=== PATIENT | male | born 1980 | race Caucasian/White ===

== ENCOUNTER 2023-10-14 21:36 | Emergency (ER) | payer OTHER, SELFPAY ==
[2023-10-14 21:55] VITALS: BP 144/74; PULSE 87; O2SAT 99
[2023-10-14 22:29] VITALS: BP 145/94; PULSE 85; RESP 16; TEMP 36.6; O2SAT 95; BMI 38.4
[2023-10-14 23:14] LABS: COVID-19 Test Negative (Negative); IDNOW Serial# 16C4AD1C
[2023-10-14 23:18] LABS: IDNOW Serial# 55D5AD1C; Influenza A Negative (Negative); Influenza B2 Negative (Negative)
--- OUTSIDE RECORDS SUMMARY | 2023-10-15 01:11 | XMS_ITS | Continuity of Care Document ---
Author Name Unknown Organization [facility] Address [address] [place] [address]- Care Team Providers Care Research Soil Scientist Name Role Phone Ijeoma Adams MD Primary Care Physician Encounter [facility] Date(s): 10/27/22 - 11/26/22 [facility] [address] [place] [address]- Allergies, Adverse Reactions, Alerts Substance Reaction Severity Status Strawberries Active Kiwi Active Medications atorvastatin 10 mg oral tablet 0 Refills, Maintenance, 10/12/22 8:04:00 EST, Partial fill upon patient request if the prescriptionis for a schedule II opioid drug. Start Date: 10/12/22 Status: Ordered fluticasone 50 mcg/inh nasal spray 1 sprays, Nares, Both, 2 times a day, # 16 Gm, 3 Refills, Maintenance, 10/13/22 8:54:00 EST, [place],[facility] #[id number], Partial fill upon patient request if the prescription is for a schedule II opioid drug., 1 sprays Nares, Both 2 times a da... Start Date: 10/13/22 Status: Ordered metFORMIN 500 mg oral tablet 1 tablet = 500 mg, By Mouth, 2 times a day, # 180 tablet, 1 Refills, Maintenance, 10/27/22 21:18:00EST, Tablet, [facility]/pharmacy #[id number], Partial fill upon patient request if the prescription is for a schedule II opioid drug., 160, cm, 10/12/22 8:01:00 EST... Start Date: 10/27/22 Status: Ordered metFORMIN 500 mg oral tablet 0 Refills, Maintenance, 10/12/22 8:04:00 EST, Partial fill upon patient request if the prescriptionis for a schedule II opioid drug. Start Date: 10/12/22 Status: Ordered ondansetron 4 mg oral tablet, disintegrating 1 tablet = 4 mg, By Mouth, Every 8 hours, PRN as needed for nausea/vomiting, # 12 tablet, 0 Refills, Maintenance, 03/20/20 15:06:00 EDT, DIS Tablet Start Date: 03/20/20 Stop Date: 03/23/20 Status: Ordered ondansetron 4 mg oral tablet, disintegrating 1 tablet = 4 mg, By Mouth, Every 8 hours, PRN as needed for nausea/vomiting, # 12 tablet, 0 Refills, Maintenance, 03/20/20 15:07:00 EDT, DIS Tablet, [facility] #[id number], 162, cm, 12/11/19 15:15:00 EDT, Height, 95, kg, 12/11/19 15:15:00 EDT, . Start Date: 03/20/20 Stop Date: 03/23/20 Status: Ordered Zofran 4 mg oral tablet 1 tablet = 4 mg, By Mouth, Every 8 hours, PRN Nausea & Vomiting, # 9 tablet, 0 Refills, Maintenance, 03/20/20 15:04:00 EDT, Tablet Start Date: 03/20/20 Stop Date: 03/23/20 Status: Ordered Problem List Condition Confirmation Course Effective Dates Status H ealth Status Informant Type 2 diabetes mellitus with hyperglycemia Confirmed Active Hyperlipidemia Confirmed Active Severe obesity Confirmed Active Social History Social History Type Response Smoking Status Never (less than 100 in lifetime) entered on: 10/12/22 Sex Patient Care team information Care Team Personnel Name: Ijeoma Adams MD Position: [facility] Primary Care Physician Member Role: PCP Address: Address: [address] [place] [address]- Care Team Related Persons Name: JAZ WINN Address: [place] [address]
--- OUTSIDE RECORDS SUMMARY | 2023-10-15 01:11 | XMS_ITS | Continuity of Care Document ---
Author Name Unknown Organization [facility] Address [address] [place] [address]- Care Team Providers Care Corn Miller Name Role Phone Ijeoma Adams MD [id number] 09[facility]12[facility] [address] [place], [place] [address] Attending Physician: Ijeoma Adams MD Allergies, Adverse Reactions, Alerts Substance Reaction Severity Status Strawberries Active Kiwi Active Medications ondansetron 4 mg oral tablet, disintegrating 1 [...] Refills, Maintenance, 03/20/20 15:07:00 EDT, DIS Tablet, [facility] #[id number], 162, cm, 12/11/19 15:15:00 EDT, Height, 95, kg, 12/11/19 15:15:00 EDT, Start Date: 03/20/20 Stop Date: 03/23/20 Status: Ordered Zofran 4 mg oral tablet 1 tablet = 4 mg, By Mouth, Every 8 hours, PRN Nausea & Vomiting, # 9 tablet, 0 Refills, Maintenance, 03/20/20 15:04:00 EDT, Tablet Start Date: 03/20/20 Stop Date: 03/23/20 Status: Ordered Patient Care team information Care Team Personnel Name: Angie ORDAZ, Ijeoma Franklin Position: [facility] Primary Care Physician Member Role: PCP Address: Address: [address] [place] [address] - [place] [address]- Care Team Related Persons Name: MORIAHJAZ PORTILLO Address: [place] [address]
--- OUTSIDE RECORDS SUMMARY | 2023-10-15 01:11 | XMS_ITS | Continuity of Care Document ---
Author Name Unknown Organization [facility] ter Address [address] [place] [address]- Care Team Providers Care Project Analyst Name Role Phone Ijeoma Adams MD Primary Care Physician En[place] [facility] Date(s): 01/02/23 - 01/02/[address] [address]- Discharge Disposition: A-D/C Home Attending Physician: Tootie Ambriz MD Admitting Physician: Tootie Ambriz MD Referring Physician: Not on Staff, Referring MD Allergies, Adverse Reactions, Alerts Substance Reaction [...] Gm, 3 Refills, Maintenance, 10/13/22 8:54:00 EST, [place],[facility] #[id number], Partial fill upon patient request if the prescription is for a schedule II opioid drug., 1 sprays Nares, Both 2 times a da... Start Date: 10/13/22 Status: Ordered metFORMIN 500 mg oral tablet 1 tablet = 500 mg, By Mouth, 2 times a day, # 180 tablet, 1 Refills, Maintenance, 10/27/22 21:18:00EST, Tablet, [facility]/pharmacy #[id number], Partial fill upon patient request if the [...] Refills, Maintenance, 03/20/20 15:07:00 EDT, DIS Tablet, [facility] #[id number], 162, cm, 12/11/19 15:15:00 EDT, Height, 95, [...] Hyperlipidemia Confirmed Active Severe obesity Confirmed Active Vital Signs Most recent to oldest [Reference Range]: 1 2 3 Oxygen Saturation [94-100 %] 98 % (01/02/23 6:21 AM) 98 % (01/02/23 4:12 AM) 98 % (01/02/23 2:07 AM) Pulse Rate [55-90 bpm] 110 bpm *H* (01/02/23 6:21 AM) 111 bpm *H* (01/02/23 4:12 AM) 122 bpm *H* (01/02/23 2:07 AM) Blood Pressure [90-138/55-84 mm Hg] 126/78mm Hg (01/02/23 6:21 AM) 123/76mm Hg (01/02/23 4:12 AM) 127/95mm Hg (01/02/23 2:07 AM) Respiratory Rate [16-30 br/min] 22 br/min (01/02/23 6:21 AM) 24 br/min (01/02/23 4:12 AM) 22 br/min (01/02/23 2:07 AM) Temperature [96.8-100.4 DegF] 99.1 DegF (01/02/23 2:07 AM) 98.7 DegF (01/02/23 12:16 AM) Mode of Delivery (Oxygen) Room air (01/02/23 12:16 AM) Blood pressure sites Arm, right (01/02/23 2:07 AM) Arm, left (01/02/23 12:16 AM) Temperature Route Oral (01/02/23 12:16 AM) Social History Social History Type Response Smoking Status Never (less than 100 in lifetime) entered on: 10/12/22 Sex Note * Alexandria HAMILTON, Miguelito Abdi: PERFORM Event Display: Patient Education Leaflets Authored Date: [id number] Unknown Causes of Abdominal Pain (Adult) ?? [id number] Unknown Causes of Abdominal Pain (Adult) The exact cause of your belly (abdominal) pain is not clear. Your exam and tests don't suggest a dangerous cause at this time. This does not mean that this is something to worry about. Everyone likesto know the exact cause of the problem. But sometimes with belly pain, there is no clear-cut cause,and this could be a good thing. Your symptoms can be treated, and you should feel better.?? Your condition does not seem serious now. But sometimes the signs of a serious problem may take more time to appear. For this reason,??it's important for you to watch for any new symptoms, problems,??or worsening of your condition. Over the next few days, the abdominal pain may come and go. Or it may be constant. Other common symptoms can include nausea and vomiting. Sometimes it can be difficult to tell if you feel nauseous. You may just feel bad and not connect that feeling to nausea. Constipation, diarrhea, and a fever maygo along with the pain. The pain may continue even if treated correctly over the following days. Depending on how things go, sometimes the cause can become clear and you may need more??or different treatment. You may also need other evaluations, medicines, or tests. Home care Your healthcare provider may prescribe medicine for pain, symptoms, or an infection. ??Follow the healthcare provider's instructions for taking these medicines. General care ??? Rest as much as you can until your next exam. No strenuous activities. ??? Try to not do anything that may have caused your symptoms. This might be not taking any medicines unless otherwise directed by your healthcare provider. It might be not eating certain foods or doing certain activities. ??? Find positions that ease discomfort. A small pillow placed on your belly may help relieve pain. ??? Something warm on your belly such as a heating pad may help, but be careful not to burn yourself. Diet ??? Don???t??force yourself to eat, especially if having cramps, vomiting, or diarrhea. ??? Water is important so you don't get dehydrated. Soup may also be good. Sports drinks may also help, especially if they are not too acidic. Don't drink sugary drinks as this can make things worse. Take liquids in small amounts. Don???t??guzzle them. ??? Caffeine sometimes makes the pain and cramping worse. ??? Don???t take??dairy products if you have vomiting or diarrhea. ??? Don't eat large amounts at a time. Eat several small meals during the day instead of 2 or 3 larger meals. Wait a few minutesbetween bites. ??? Eat a diet low in fiber (called a low-residue diet). Foods allowed include refined breads, white rice, fruit and vegetable juices without pulp, tender meats. These foods will pass more easily through the intestine. ??? Don???t have??whole-grain foods, whole fruits and vegetables,meats, seeds and nuts, fried or fatty foods, dairy, alcohol and spicy foods until your symptoms go away. ?? Follow-up care Follow up with your healthcare provider, or as advised, if your pain does not begin to improve in the next 24 hours. ?? Call 911 Call?? 911 if any of these occur: ??? Trouble breathing ??? Confusion ??? Fainting or loss of consciousness ??? Rapid heart rate ??? Seizure ?? When to seek medical advice Call your healthcare provider right away if any of these occur: ??? Pain gets worse or moves to theright lower abdomen ??? New or worsening vomiting or diarrhea ??? Swelling of the abdomen ??? Unable to pass stool for more than??3 days ??? Fever of 100.4??F (38??C) or higher, or as directed by your healthcare provider ??? Blood in vomit or bowel movements (dark red or black color) ??? Yellow color of eyes and skin (jaundice) ??? Weakness, dizziness ??? Chest, arm, back, neck, or jaw pain ??? Can't keep down medicines, liquids, or water because of too much vomiting ??? If you have a vagina: unexpected vaginal bleeding or missed period ?? Last Reviewed Date: 2021 ?? 2451-3044 [employer]. All rights reserved. This information is not intended as a substitute for professional medical care. Always follow your healthcare professional's instructions. ?? Patient Care team information Care Team Personnel Name: Ijeoma Adams MD Position: [facility] Primary Care Physician Member Role: PCP Address: Address: [address] [place] [id number]- Name: Miguelito Mayfield Position: [facility] Associate Professional Member Role: ED Physician Customer Supply Coordinator Address: Address: [address] [place] [address]- Name: Nic Hunter RN Position: [facility] ED RN W/OE and Tasks Member Role: Patient Care Provider Name: Juani Peter Position: [facility] ED TA [facility] Member Role: Patient Care Provider Name: Tootie Ambriz MD Position: [facility] ED Medicine MD Member Role: Admitting Physician Address: Address: [address] [place] [id number] Care Team Related Persons Name: JAZ WINN Address: [place] [address]
--- OUTSIDE RECORDS SUMMARY | 2023-10-15 01:11 | XMS_ITS | Continuity of Care Document ---
Author Name Unknown Organization [facility] ter Address [address] [place] [address]- Care Team Providers Care Paper Rewinder Operator Name Role Phone Ijeoma Adams MD Primary Care Physician Encounter [facility] Date(s): 12/11/19 - 12/11/[address] [address]- [facility] Encounter Diagnosis Gastroenteritis(Final) - 12/11/19 Discharge Disposition: A-D/C Home Attending Physician: Naveen Rowe MD Admitting Physician: Naveen Rowe MD Referring Physician: Not on Staff, Referring MD Allergies, Adverse Reactions, Alerts Substance Reaction Severity Status Strawberries Active Kiwi Active Vital Signs Most recent to oldest [Reference Range]: 1 2 3 Height 162 cm (12/11/19 3:15 PM) 162 cm (12/11/19 1:06 PM) 162 cm (12/11/19 10:18 AM) Weight 95 kg (12/11/19 3:15 PM) 95 kg (12/11/19 1:06 PM) 95 kg (12/11/19 7:39 AM) Oxygen Saturation [94-100 %] 97 % (12/11/19 3:15 PM) 96 % (12/11/19 1:06 PM) 97 % (12/11/19 10:18 AM) Pulse Rate [55-90 bpm] 101 bpm *H* (12/11/19 3:15 PM) 100 bpm *H* (12/11/19 1:06 PM) 84 bpm (12/11/19 10:18 AM) Body Mass Index [18.5-24.99] 36.2 *>HHI* (12/11/19 3:15 PM) 36.2 *>HHI* (12/11/19 1:06 PM) Blood Pressure [90-138/55-84 mm Hg] 118/79mm Hg (12/11/19 3:15 PM) 140/80mm Hg *H* (12/11/19 1:06 PM) 120/77mm Hg (12/11/19 10:18 AM) Respiratory Rate [16-30 br/min] 18 br/min (12/11/19 3:15 PM) 16 br/min (12/11/19 1:06 PM) 17 br/min (12/11/19 10:18 AM) Temperature [96.8-100.4 DegF] 97.9 DegF (12/11/19 3:15 PM) 97.8 DegF (12/11/19 10:18 AM) 98.3 DegF (12/11/19 7:39 AM) Liters per Minute 0 L/min (12/11/19 10:18 AM) Mode of Delivery (Oxygen) Room air (12/11/19 3:15 PM) Room air (12/11/19 1:06 PM) Room air (12/11/19 10:18 AM) Blood pressure sites Arm, right (12/11/19 10:18 AM) Temperature Route Oral (12/11/19 3:15 PM) Oral (12/11/19 10:18 AM) Oral (12/11/19 7:39 AM) Dry Weight 95 kg (12/11/19 3:15 PM) 95 kg (12/11/19 1:06 PM) 95 kg (12/11/19 7:39 AM)
--- OUTSIDE RECORDS SUMMARY | 2023-10-15 01:11 | XMS_ITS | Continuity of Care Document ---
Author Name Unknown Organization [facility] Address [address] [place] [address]- Care Team Providers Care Coloring Room Man Name Role Phone Ijeoma Adams MD Primary Care Physician [place] [facility] Date(s): 10/12/22 - 10/19/22 [facility] [address] [place] [address]- Encounter Diagnosis Right patellofemoral syndrome(Discharge Diagnosis) - 10/13/22 Attending Physician: Ijeoma Adams MD Allergies, Adverse [...] Gm, 3 Refills, Maintenance, 10/13/22 8:54:00 EST, [place],[facility] #[id number], Partial fill upon patient request if the [...] Refills, Maintenance, 03/20/20 15:07:00 EDT, DIS Tablet, [facility] #[id number], 162, cm, 12/11/19 15:15:00 EDT, Height, 95, [...] Hyperlipidemia Confirmed Active Severe obesity Confirmed Active Diagnosis Diagnosis Type Effective Dates Health Status Clinical Service Informant Right patellofemoral syndrome Discharge Diagnosis 10/13/22 Vital Signs Most recent to oldest [Reference Range]: 1 Height 160 cm (10/12/22 8:01 AM) Weight 105.6 kg (10/12/22 8:01 AM) Oxygen Saturation [94-100 %] 98 % (10/12/22 8:01 AM) Pulse Rate [55-90 bpm] 102 bpm *H* (10/12/22 8:01 AM) Body Mass Index [18.5-24.99 kg/m2] 41.25 kg/m2 *>HHI* (10/12/22 8:01 AM) Blood Pressure [90-138/55-84 mm Hg] 95/6 5mm Hg (10/12/22 8:01 AM) Blood pressure sites Arm, left (10/12/22 8:01 AM) Social History Social History Type Response Smoking Status Never (less than 100 in lifetime) entered on: 10/12/22 Sex Note * Danielito Whitehead: PERFORM, SIGN, VERIFY Event Display: Patient Education/Instruction Authored Date: [id number] [facility] *[facility] Clinical Summary Name MIGEL MIRANDA Age 41 Years 1980 PCP Angie ORDAZ, Ijeoma Franklin PCP Visit Date 10/12/2022 07:40:00 Additional Instructions: Scheduled Appointments?? Future Appointments ?No Future Appointments Scheduled Follow-Up Instructions ?? Diagnosis Medications: Please continue your medications until treatment is completed or stopped by your provider. Discuss any questions related to medications with your provider. Medications to Continue with No Changes These medications were not printed or sent to your pharmacy Atorvastatin (atorvastatin 10 mg oral tablet) Next Dose: Metformin (metFORMIN 500 mg oral tablet) Next Dose: Ondansetron (ondansetron 4 mg oral tablet, disintegrating) 1 tab(s) Oral every 8 hours as needed asneeded for nausea/vomiting for 3 Days. Refills: 0. Next Dose: Ondansetron (ondansetron 4 mg oral tablet, disintegrating) 1 tab(s) Oral every 8 hours as needed asneeded for nausea/vomiting for 3 Days. Refills: 0. Next Dose: Ondansetron (Zofran 4 mg oral tablet) 1 tab(s) Oral every 8 hours as needed Nausea & Vomiting for 3 Days. Refills: 0. Next Dose: Allergy Info:?? Kiwi; Strawberries Medications Given This Visit Future Orders ?No future orders Vital Signs Height 160 cm Weight 105.6 kg BMI 41.25 kg/m2 Blood Pressure 95 mm Hg/65 mm Hg Temperature Pulse Rate 102 bpm Respiratory Rate 02 Sat Mode of Delivery 98 %/ You can now view a summary of your hospital visit from the comfort of your home through a free online portal called [employer]. [employer] is a website that allows you to securely view your medical information including discharge summary, medications and follow-up visits. ??You can alsosend a secure electronic message to your doctor???s office to request appointments, renew medications or just ask a question. You can enroll at [email or web address] or register during your next office visit. Disclaimer:?? The information provided is of a general nature and is intended to be used in conjunction with the recommendations and advice of your health care practitioner. ??Every effort has been made to ensure that the information provided is accurate and complete at the time it is provided to you however, as your needs change, or, as new ??information becomes available, different or additional instructions may be required. If you have questions, please consult with your primary care provider or pharmacist, as appropriate. ??This information is not intended to serve as substitution for assessment and evaluation by a qualified health care provider. If you do not have a primary care provider, you may find a [facility] provider by calling [facility] at [phone]. For information about the plan of care including goals and instructions for your diagnosis, please see the patient education orders section of this document. Patient Education Materials?? The content of this educational material or handout may have been modified, supplemented, or adapted from its original content and format to support your individualized medical care. Patient Care team information Care Team Personnel Name: Ijeoma Adams MD Position: [facility] Primary Care Physician Member Role: PCP Address: Address: [address] [facility] [place] [address]- Care Team Related Persons Name: JAZ WINN Address: [place] [address]
--- OUTSIDE RECORDS SUMMARY | 2023-10-15 01:11 | XMS_ITS | Continuity of Care Document ---
Author Name Unknown Organization [facility] ter Address [address] [place] [address]- Care Team Providers Care Inspector Scales Name Role Phone Ijeoma Adams MD Primary Care Physician [place] [facility] - 03/20/[address] [address]- [facility] Discharge Disposition: A-D/C Home Attending Physician: Lexie Borjas MD Admitting Physician: Lexie Borjas MD Referring Physician: Not on Staff, Referring [...] Refills, Maintenance, 03/20/20 15:07:00 EDT, DIS Tablet, [facility] #[id number], 162, cm, 12/11/19 15:15:00 EDT, Height, 95, kg, 12/11/19 15:15:00 EDT, Start Date: 03/20/20 Stop Date: 03/23/20 Status: Ordered Zofran 4 mg oral tablet 1 tablet = 4 mg, By Mouth, Every 8 hours, PRN Nausea & Vomiting, # 9 tablet, 0 Refills, Maintenance, 03/20/20 15:04:00 EDT, Tablet Start Date: 03/20/20 Stop Date: 03/23/20 Status: Ordered Results Radiology Reports * Exam Date Time Procedure Performing Provider Status 03/20/20 1:52 PM Chest Portable Ynes Shell; Chiara ( Verified) Notes: (Chest Portable) Reason For Exam: Abdominal Pain RESULT: Chest Portable Chest Portable AP upright at 1337 hours Reason: Abdominal Pain; Clinical Question(s): Other:; free air; Hx of Present Illness: pt reports vomiting x4 today with assoc, loose stool and abd. cramping. denies fevers, cough SOB, body aches, sick contacts. COMPARISON: 08/16/2018. FINDINGS: LINES AND TUBES: None. LUNGS AND PLEURA: Clear lungs. Normal pulmonary vascularity. No pleural effusion. No pneumothorax. HEART, MEDIASTINUM AND ANIA: Heart is normal in size. Normal mediastinal and hilar contour. BONES AND SOFT TISSUES: No acute abnormality. IMPRESSION: No acute abnormality. I have personally reviewed the images and I agree with this report. WSN: [id number] Ordering Physician: Jael Toledo Dictated By: All Bolivar MD Dictated Date/Time: 03/20/20 1:57 pm Reviewed By: Raul Dean DO Signed By: Raul Dean DO Signed Date/Time: 03/20/20 2:02 pm Transcribed By: CATRACHITA Transcribed Date/Time: 03/20/20 1:55 pm Vital Signs Most recent to oldest [Reference Range]: 1 2 Oxygen Saturation [94-100 %] 98 % (03/20/20 3:01 PM) 98 % (03/20/20 12:54 PM) Pulse Rate [55-90 bpm] 99 bpm *H* (03/20/20 3:01 PM) 114 bpm *H* (03/20/20 12:54 PM) Blood Pressure [90-138/55-84 mm Hg] 138/ 82mm Hg (03/20/20 3:01 PM) 131/82mm Hg (03/20/20 12:54 PM) Respiratory Rate [16-30 br/min] 17 br/mi n (03/20/20 3:01 PM) 18 br/min (03/20/20 12:54 PM) Temperature [96.8-100.4 DegF] 98.4 DegF (03/20/20 3:01 PM) 98.6 DegF (03/20/20 12:54 PM) Mode of Delivery (Oxygen) Room air (03/20/20 3:01 PM) Room air (03/20/20 12:54 PM) Blood pressure sites Arm, left (03/20/20 3:01 PM) Arm, left (03/20/20 12:54 PM) Temperature Route Oral (03/20/20 3:01 PM) Oral (03/20/20 12:54 PM)
--- OUTSIDE RECORDS SUMMARY | 2023-10-15 01:11 | XMS_ITS | Continuity of Care Document ---
Author Name Unknown Organization [facility] Address [address] [place] [address]- Care Team Providers Care Science Technician Name Role Phone Ijeoma Adams MD Primary Care Physician Encounter [facility] Date(s): 10/12/22 - 11/11/22 [facility] [address] [place] [address]- Attending Physician: Admhaydee, Denisa Admitting Physician: [id number] Referring Physician: Admtr, Ar8 Allergies, Adverse Reactions, Alerts Substance Reaction Severity [...] Gm, 3 Refills, Maintenance, 10/13/22 8:54:00 EST, [place],[facility] #[id number], Partial fill upon patient request if the prescription is for a schedule II opioid drug., 1 sprays Nares, Both 2 times a da... Start Date: 10/13/22 Status: Ordered metFORMIN 500 mg oral tablet 1 tablet = 500 mg, By Mouth, 2 times a day, # 180 tablet, 1 Refills, Maintenance, 10/27/22 21:18:00EST, Tablet, [facility]/pharmacy #[id number], Partial fill upon patient request if the [...] Refills, Maintenance, 03/20/20 15:07:00 EDT, DIS Tablet, [facility] #[id number], 162, cm, 12/11/19 15:15:00 EDT, Height, 95, [...] Team Personnel Name: Ijeoma Adams MD Position: [facility] Primary Care Physician Member Role: PCP Address: Address: [address] [facility] [place] [address]- Care Team Related Persons Name: ELIJAZ MAXWELL Address: [place] [address]
--- NOTE | 2023-10-15 01:17 | ED.EAR ---
HPI - Ear Problem General Chief complaint: Ear Problems Stated complaint: R EAR PAIN Time Seen by Provider: 10/15/23 00:48 Source: patient Mode of arrival: EMS History of Present Illness HPI Narrative: 42-year-old male with Right ear pain 4 days, he denies any fevers or chills. Related Data Previous Rx's Medication Instructions Recorded ofloxacin 0.3 % ear drops 5 drp otic (ear) right BID 7 days 10/15/23 #10 mL Allergies Allergy/AdvReac Type Severity Reaction Status Date / Time kiwi Allergy Unknown Verified 10/14/23 22:29 strawberry Allergy Unknown Verified 10/14/23 22:29 Review of Systems Review of Systems: Pertinent positives and negatives as stated in the [facility] Past Medical History Source: nursing notes reviewed Onset Date is defined in the Problem List Problems that require an onset date and time if occurred within 24 hrs of arrival to the ED Aortic Dissection and Rupture; Neurologic impairment; Cardiopulmonary Arrest; Endotracheal Intubation; Insertion or Replacement of Mechanical Circulatory Assist Device Social History Social History Advance Directives: No Advance Directives Information Provided: Yes Physical Exam Vital Signs: Vital Signs: Last Vital Signs Temp 97.8 F 10/14/23 22:29 Pulse 85 10/14/23 22:29 Resp 16 10/14/23 22:29 BP 145/94 H 10/14/23 22:29 Pulse Ox 95 10/14/23 22:29 O2 Del Method Room Air 10/14/23 22:29 BMI result Body Mass Index 38.4 VITAL SIGNS: Reviewed. GENERAL: Well developed, well nourished, in no acute distress. HEAD: Normocephalic/atraumatic EYES: PERRLA, EOMI EARS: RIGHT- Ext canals with mild swelling and erythema, TMs non-bulging and non-erythematous; LEFT- Ext canals without abnormality, TMs non-bulging and non-erythematous NOSE: Nares patent bilateral OROPHARYNX: no oral lesions noted, posterior pharynx clear NECK: Supple, no adenopathy LUNGS: Normal breath sounds. No adventitious sounds or accessory muscle use. SpO2<95> CARDIOVASCULAR: Regular rate and rhythm without noted murmurs ABDOMEN: Soft, non-tender, non-distended with bowel sounds. MUSCULOSKELETAL: No tenderness, deformities, or effusions noted on gross inspection. EXTREMITIES: No cyanosis, clubbing or edema. SKIN: Inspection of the skin reveals no rashes NEUROLOGIC: Alert and oriented x 4. Strength and sensation to light touch were grossly intact x 4. Medical Decision Making Medical Decision Making [facility] Narrative: 42-year-old male with history and clinical presentation most consistent with right-sided otitis externa, patient has underlying diabetes and will be treated with 7 days of ofloxacin. He is otherwise discharged home Differential Diagnosis Differential Diagnoses: The differential diagnosis associated with the presentation includes Please see the discussion Admission/Observation Please see the discussion above Lab Data Labs: Lab Results 10/14/23 Range/Units 22:51 COVID-19 (ASIF) Negative (Negative) COVID-19 Clin Com See Note Influenza Type A ([facility]) Negative (Negative) Influenza Type B ([facility]) Negative (Negative) Influenza A & B Note See Note Discharge Plan Discharge Clinical Impression: Otitis externa Patient Disposition: Home, Self-Care Instructions: Otitis Externa (ED) Additional Instructions: 1. Resume all home medications as prescribed. 2. Take the antibiotics as prescribed 3. Follow-up with your primary care doctor Return to the ER for any worsening symptoms. Prescriptions: New ofloxacin 0.3 % drops 5 drp otic (ear) right BID 7 Days Qty: 10 0RF Referrals: Ijeoma Adams MD [Primary Care Provider] -
== END 2023-10-15 01:45 | disposition home or self-care (01) ==
PROVIDERS: Emergency Provider Student in an Organized Health Care Education/Training Program; PCP Pediatrics
DX: H60.91 Unspecified otitis externa, right ear (principal); Z11.52 Encounter for screening for COVID-19
CPT/HCPCS: 87502; 87635; 99283; 99284